=== PATIENT | male | born 1945 ===

== ENCOUNTER → 2025-02-07 16:24 | Outpatient (CLI) | payer MEDICARE, SELFPAY ==
--- NOTE | 2025-02-07 | DI.RAD_ITS ---
Exam(s) XR CHEST 2V PA LATERAL EXAM: XR CHEST 2V PA LATERAL CLINICAL HISTORY: Abnormal Chest xr R93.89 TECHNIQUE: 2D digital imaging was performed. Two views. COMPARISON: No exams were available for comparison FINDINGS: HEART: Normal enlarged. Status post CABG. Aorta: Not dilated. Tortuous. PULMONARY VASCULATURE: Normal. MEDIASTINUM: Unremarkable. LUNGS: Clear. Lobe, normal variant. PLEURAL SPACE: No pleural effusion or pneumothorax. BONE:Moderate compression fracture, T5 or T6. SOFT TISSUES: Unremarkable. IMPRESSION: No acute abnormality. DATA REPOSITORY: RADIATION DOSE DELIVERED:
--- NOTE | 2025-02-07 | DI.US_ITS ---
APPROVED REPORT EXAM: Comprehensive 2D, Doppler, and color-flow Echocardiogram Patient Location: Out-Patient Creative Lead: Sharri Randall RDCS (AE) Indications: Heart disease, increased TERRY and palpitations Other Information Study Quality: Adequate Conclusion Normal left ventricular wall thickness and chamber size. Ejection fraction is 45%. There is mild global hypokinesis Normal right ventricular size and function Both atria are mildly enlarged There are no structural valvular abnormalities Mild aortic regurgitation. 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 Left ventricular systolic function is mildly decreased. There is normal left ventricular wall thickness. There is global hypokinesis of the left ventricle. There is no ventricular septal defect visualized. LVEF is 45%. Right Ventricle The right ventricle is normal size. The right ventricular systolic function is normal. Atria Left atrium is mildly dilated. Right atrium is mildly dilated. The interatrial septum is intact with no evidence for an atrial septal defect. Aortic Valve The aortic valve is normal in structure. Aortic valve is trileaflet. There is no aortic valvular stenosis. Mild aortic regurgitation. Mitral Valve The mitral valve is normal in structure. No evidence of mitral valve stenosis. Trace to mild mitral regurgitation. Tricuspid Valve The tricuspid valve is normal in structure. There is no tricuspid valve stenosis. Trace tricuspid regurgitation. Unable to assess PA pressure. Pulmonic Valve The pulmonary valve is normal in structure. There is no pulmonic valvular stenosis. Trace pulmonic regurgitation. Great Vessels The aortic root is normal in size. The ascending aorta is mildly dilated. Aortic arch is normal in caliber. IVC is normal in size and collapses >50% with inspiration. Pericardium There is no pericardial effusion. 2D Dimensions IVSD d PLAX 0.90 cm M: 0.6-1.2 Ao Root d 3.77 cm M: 3.1 - 3.7 LVPW d PLAX 0.90 cm M: 0.6 - 1.2 Ao Asc Diam d 3.52 cm M: 2.6 - 3.4 LVID d PLAX 5.80 cm M: 4.2 - 5.8 LVDs 4.45 cm M: 2.5 - 4.0 LV EF Teichholz 45.5 % FS 23.02 % LV EDV (Teich) 165.0 mL LV ESV (Teich) 89.9 mL Auto EF LV EDV A4C 178.1 mL LV EDV A2C 187.3 mL LV EDV BP 180.1 mL LV ESV A4C 93.2 mL LV ESV A2C 103.9 mL LV ESV BP 97.6 mL LVEF(%) A4C 47.7 % LVEF(%) A2C 44.5 % LVEF(%) BP 45.8 % LV SV A4C 84.9 ml LV SV A2C 83.4 ml LV SV BP 82.5 ml LV CO A4C 4.6 L/min LV CO A2C 4.6 L/min LV CO BP 4.6 L/min HR A4C 54.38 BPM HR A2C 54.88 BPM LV EDV Index (BP) LA Volume LA Length A4C 5.3 cm LA Length A2C 5.6 cm LA Area A4C s 19.78 cm2 LA Area A2C s 24.54 cm2 LA Vol A4C A-L 62.38 mL LA Vol A2C A-L 91.71 mL LA Vol Biplane A-L 77.4 mL LA Vol/BSA A4C A-L LA Vol/BSA A2C A-L LA Vol/BSA BP A-L 37.6 mL/m2 LA Vol A4C MOD 58.2 mL LA Vol A2C MOD 88.7 mL LA Vol BP MOD 73.4 mL RA Volume RA Area A4C 18.5 cm2 RA ESV A4C (A-L) 59.5mL RA Vol/BSA A4C A-L RA Length A4C 4.9 cm RA ESV A4C (MOD) 53.8mL LV Diastology MV E' medial 0.063 (>0.07 m/s) MV E Vmax 0.60 (0.4-1.3 m/s) MV E/E' MED 9.48 (<14) MV A Vmax 0.90 (0.4-1.3 m/s) MV E' lateral 0.077 (>0.1 m/s) E/A Ratio 0.7 MV E/E' LAT 7.83 (<14) MV E' Average 0.070 m/s MV E/E'(average) 8.58 Aortic Valve AoV Vmax 1.21 m/s LVOT Vmax 0.79 m/s AoV Peak Grad 30.3 mmHg LVOT Peak Grad 2.5 mmHg AoV Area (Vmax) 2.25 cm2 LVOT VTI 0.188 m AoV VTI 0.304 m LVOT Mean Grad 1.3 mmHg AoV Mean Reyes. 0.84 m/s LVOT SV 65.02 mL AoV Mean Grad 3.3 mmHg LVOT Diam s 2.10 cm AoV Area (VTI) 2.14 cm2 AV Regurg Peak Gr. 5.90 mmHg Velocity Ratio 0.65 AR Decel Duchesne 0.9m/sec2 AR DT 4096 msec AR PHT 1188 msec AR Vmax 3.70 m/s Mitral Valve MV DT 490 (160-240 msec) MV Vmax TIPS 0.95 m/s MV Mean Grad 1.1 (<2mmHg) MV VTI 0.392 m Pulmonary Valve RVOT Vmax 0.51 m/s RVOT Peak Gr. 1.0 mmHg RVOT VTI 0.119 m RVOT Mean Gr. 0.8 mmHg Tricuspid Valve RA Pressure 3.00 mmHg TV S' 0.11 m/s
== END ==
LOC: DI 16:24
PROVIDERS: PCP Nurse Practitioner Family; Visit Provider Nurse Practitioner Family
DX: I51.9 Heart disease, unspecified (principal); I08.1 Rheumatic disorders of both mitral and tricuspid valves
CPT/HCPCS: 93306; 71046